=== PATIENT | female | born 1955 | race Caucasian/White ===

== ENCOUNTER 2017-07-17 11:05 | Inpatient (IN) | payer BC ==
[2017-07-14 14:48] VITALS: BP 113/64; PULSE 72; RESP 17
[2017-07-17] VITALS (15 sets, daily range): BP systolic 108–126; BP diastolic 51–76; PULSE 60–78; RESP 16–20; Ht 154.9 cm; Wt 88.7 kg
[~2017-07-17] VITALS: Ht 154.9 cm; Wt 88.7 kg
[2017-07-17] MEDS ORDERED: morphine SULFATE/PF (10 MG/10 ML) INJ ONE (11:53)
[2017-07-17] MEDS ORDERED: ROCURONIUM 50 MG INJ ONE (11:54)
[2017-07-17] MEDS ORDERED: LIDOCAINE 2% (SDV) 5 ML INJ ONE (11:54)
[2017-07-17] MEDS ORDERED: PROPOFOL 20 ML ONE (11:54)
[2017-07-17] MEDS ORDERED: FENTAnyl 50 MCG/ML VIAL ONE (11:56)
[2017-07-17] MEDS ORDERED: MEPERIDINE 25 MG INJ IV PRN (12:30)
[2017-07-17] MEDS ORDERED: KETOROLAC 30 MG INJ IV PRN ×2 (12:30→15:00)
[2017-07-17] MEDS ORDERED: FENTAnyl 50 MCG/ML VIAL IV PRN ×3 (12:30)
[2017-07-17] MEDS ORDERED: LABETALOL HCL 20MG INJ IV PRN (12:30)
[2017-07-17] MEDS ORDERED: MIDAZOLAM 1 MG/ML 2 ML INJ IV PRN (12:30)
[2017-07-17] MEDS ORDERED: ONDANSETRON 4 MG INJ IV PRN ×4 (12:30→18:00)
[2017-07-17] MEDS ORDERED: OXYCODONE/ACETAMINOPHEN (5/325) TAB PO PRN ×2 (12:30)
[2017-07-17] MEDS ORDERED: METOCLOPRAMIDE 10 MG INJ IV PRN (12:30)
[2017-07-17] MEDS ORDERED: HYDROmorphONE (0.2 MG/ML) 10ML SYG IV PRN ×3 (12:30)
[2017-07-17] MEDS ORDERED: EPHEDrine SULFATE 50 MG/5 ML SYG IV PRN (12:30)
[2017-07-17] MEDS ORDERED: DIPHENHYDRAMINE 50 MG INJ IV PRN ×2 (12:30→15:00)
[2017-07-17] MEDS ORDERED: hydrALAzine 20 MG INJ IV PRN (12:30)
[2017-07-17] MEDS ORDERED: MIDAZOLAM 1 MG/ML 2 ML INJ ONE (12:53)
--- NOTE | 2017-07-17 12:53 | HPN ---
Date/Time of Note Date/Time of Note DATE: 07/17/17 TIME: 12:52 Interval H&P Admission Note Pt. seen H&P reviewed: No system changes REGINA RIBEIRO MD Jul 17, 2017 12:53
--- NOTE | 2017-07-17 12:57 | OPR ---
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
[2017-07-17] MEDS ORDERED: TRANEXAMIC ACID 1,000 MG in SOD CHLORIDE 0.9% 100 ML IV ONE ×4 (13:00)
[2017-07-17] MEDS ORDERED: DEXAMETHASONE 4 MG/ML 1 ML INJ ONE (13:46)
[2017-07-17] MEDS ORDERED: ONDANSETRON 4 MG INJ ONE (13:47)
[2017-07-17] MEDS ORDERED: POLYMYXIN/BACITRACIN 1L IRRIG IRR ONE (14:29)
[2017-07-17] MEDS ORDERED: LABETALOL HCL 20MG INJ ONE (14:36)
[2017-07-17] MEDS ORDERED: GLYCOPYRROLATE 0.4 MG INJ ONE (14:43)
[2017-07-17] MEDS ORDERED: NEOSTIGMINE 3 MG/3 ML SYRINGE ONE (14:43)
[2017-07-17] MEDS ORDERED: NALOXONE (0.4 MG/ML) INJ IV PRN (15:00)
[2017-07-17] MEDS ORDERED: ZOLPIDEM 5 MG TAB PO PRN ×2 (15:00→18:00)
[2017-07-17] MEDS ORDERED: HYDROmorphONE 0.5 MG/0.5 ML SYG IV PRN ×2 (15:00)
[2017-07-17] MEDS ORDERED: ASPIRIN (EC) 325 MG TAB PO ONE (15:30)
[2017-07-17] MEDS: CEFAZOLIN 1 GM/50 ML (PMX) 50 ML IVPB SCH ×2 (15:39→21:57)
[2017-07-17] MEDS ORDERED: BISACODYL (EC) 5 MG TAB PO PRN (18:00)
[2017-07-17] MEDS ORDERED: MAGNESIUM HYDROXIDE 30ML CUP PO PRN (18:00)
[2017-07-17] MEDS ORDERED: DOCUSATE SODIUM 100 MG CAP PO PRN (18:00)
[2017-07-17] MEDS ORDERED: ACETAMINOPHEN 650 MG SUPP PR PRN (18:00)
--- NOTE | 2017-07-17 18:02 | QN ---
Documentation Comment [id number] AGUSTÍN ERICKSON MD Jul 17, 2017 18:02
[2017-07-17] MEDS: ACETAMINOPHEN 325 MG TAB PO PRN (18:03)
[2017-07-18] VITALS (8 sets, daily range): BP systolic 88–121; BP diastolic 45–72; PULSE 73–96; RESP 17–20
[2017-07-18] MEDS: CEFAZOLIN 1 GM/50 ML (PMX) 50 ML IVPB SCH ×3 (05:12→21:37)
[2017-07-18 05:22] LABS: ABNORMAL IP MESSAGE 1; BASOPHILS % 0.1 % (0.0-2.0); HEMATOCRIT 28.5 % (37.0-47.0); HEMOGLOBIN 9.6 g/dl (12.0-16.0); LYMPHOCYTES # 0.4 10^3/ul (0.8-2.9); LYMPHOCYTES % 5.1 % (15.0-51.0); MEAN CORPUSCULAR HEMOGLOBIN 30.6 pg (29.0-33.0); MEAN CORPUSCULAR HGB CONC 33.7 g/dl (32.0-37.0); MEAN CORPUSCULAR VOLUME 90.8 fl (82.0-101.0); MONOCYTE # 0.4 10^3/ul (0.3-0.9); MONOCYTES % 4.8 % (0.0-11.0); NEUTROPHIL # 7.7 10^3/ul (1.6-7.5); NEUTROPHILS % 89.5 % (39.0-77.0); PLATELET COUNT 149 10^3/UL (140-415); RED BLOOD COUNT 3.14 10^6/ul (4.20-5.40); RED CELL DISTRIBUTION WIDTH 12.6 % (11.5-14.5); WHITE BLOOD COUNT 8.6 10^3/ul (4.8-10.8)
[2017-07-18 05:45] LABS: POSITIVE DIFF @See below
[2017-07-18] MEDS ORDERED: PANTOPRAZOLE 40 MG INJ IV SCH (06:00)
[2017-07-18 06:04] LABS: ALBUMIN 3.2 g/dl (3.3-4.9); ALBUMIN/GLOBULIN RATIO 1.23; BILIRUBIN,INDIRECT 0.4 mg/dl (0-1.1); BILIRUBIN,TOTAL 0.4 mg/dl (0.2-1.3); CREATININE 0.69 mg/dl (0.44-1.00); POTASSIUM 4.5 mmol/L (3.5-5.1); TOTAL PROTEIN 5.8 g/dl (6.1-8.1)
--- NOTE | 2017-07-18 06:07 | HP ---
DATE OF ADMISSION: 07/17/2017 Thank you, Dr. Garrett, for kindly asking me to see this patient in consultation. The patient underwent right knee total replacement, has history of arthritis, has no diabetes, hypertension. She is being seen post-procedure. The family is at the bedside. PAST MEDICAL HISTORY: . No diabetes, hypertension. ALLERGIES: NEGATIVE. FAMILY HISTORY: Negative. SOCIAL HISTORY: Negative. MEDICATIONS AT HOME: None. REVIEW OF SYSTEMS: HEENT: Unremarkable. RESPIRATORY: Unremarkable. CARDIOVASCULAR: Unremarkable. ABDOMEN: Unremarkable. EXTREMITIES: As mentioned, pain. CENTRAL NERVOUS SYSTEM: Unremarkable. PHYSICAL EXAMINATION: GENERAL: The patient is awake, alert, obese female. VITAL SIGNS: Stable. HEAD: Atraumatic, normocephalic. Pupils equal, reactive to light. NECK: Supple. No JVD. LUNGS: Clear. CARDIOVASCULAR: S1, S2 normal. ABDOMEN: Soft, nontender. Bowel sounds positive. No palpable mass or hepatosplenomegaly. No guarding, rebound tenderness. EXTREMITIES: No cyanosis, clubbing, edema. The patient has a right knee dressing noted and drainage catheter noted. The patient is moving both lower extremities toes. CENTRAL NERVOUS SYSTEM: The patient is awake, alert, no focal deficit. LABORATORY DATA: None. IMPRESSION: Right total knee replacement. PLAN: To continue pain medication, stool softener, DVT prophylaxis per Dr. Garrett postop. Continue stool softener, antinausea medication, PPI. Orders were done. Dictated By: AGUSTÍN ERICKSON MD BS/NTS Conf#: [id number] DID#: [id number] CC: REGINA GARRETT MD;*EndCC* MTDD
--- NOTE | 2017-07-18 07:08 | OPR ---
DATE OF OPERATION: SURGEON: Samantha Garrett MD. ANESTHESIA: General. PREOPERATIVE DIAGNOSIS: Right knee osteoarthritis. POSTOPERATIVE DIAGNOSIS: Right knee osteoarthritis. PROCEDURE PERFORMED: Right total knee replacement arthroplasty using Sexton and Nephew components, s ize 4 Oxinium posterior stabilized femur, size 3 tibia, 9 mm liner, 23 mm patellar button. Componen ts cemented the Pal[place]os antibiotic cement. TOURNIQUET TIME: 55 minutes. ESTIMATED BLOOD LOSS: 200 mL. COMPLICATIONS: None. PROCEDURE: The patient taken to the operating room and general anesthetic given with intubation. A spinal block also given for postop pain control. Tourniquet applied on the right thigh. Wilkins cat heter inserted sterilely. Right leg prepped and draped in usual sterile manner, exsanguinated with Esmarch bandage, tourniquet inflated to 300 mmHg. Anterior incision made, medial arthrotomy. Sever e arthritis noted in the medial compartment and the patellofemoral joint. Patella prepared for a 23 mm button. Femur cut with the intramedullary guide to size 4 posterior stabilized. Tibia cut to a size 3. A trial reduction was carried out. A 9-mm liner provided full extension, stable medial and late ral stressing in extension and flexion. components were brought in. The bone was irrigated w ith pulsatile lavage. Hemostasis ascertained. Cement inserted and components placed satisfactorily with good patellar tracking. Excess cement removed meticulously. Tourniquet deflated. Hemostasis ascertained using cautery. Autotransfusion drain placed into the knee joint. Arthrotomy closed wi th #2 FiberWire sutures, subcutaneous layer closed with #1 Vicryl suture and jess on the skin. C ompression bandage applied. Anesthetic reversed. The patient taken to recovery in stable condition . Dictated By: SAMANTHA ARAUJO/MADELEINE Conf#: [id number] DID#: [id number]
[2017-07-18] MEDS: HYDROCODONE/APAP (5/325) TAB PO PRN ×3 (09:07→16:32)
--- NOTE | 2017-07-18 12:44 | OPPN ---
Date/Time of Note Date/Time of Note DATE: 07/18/17 TIME: 12:43 Anesthesia Follow up Anesthesia Follow up Last documented vital signs Vital Signs Date Time Temp Pulse Resp B/P Pulse Ox O2 Delivery O2 Flow Rate FiO2 07/18/17 07:24 97.3 98 20 100/54 94 07/18/17 04:10 Nasal Cannula 2.0 Respiratory function: WNL Cardiovascular function: WNL Comments post op day one status post total knee replacement. satisfactory pain management with intrathecal duramorph analgesia for post operative pain management. no complications noted \ CATALINA ELMORE Jul 18, 2017 12:44
--- NOTE | 2017-07-18 14:02 | PN ---
Date/Time of Note Date/Time of Note DATE: 07/18/17 TIME: 14:01 Assessment/Plan VTE Prophylaxis VTE Prophylaxis Intervention: SCD's Lines/Catheters IV Catheter Type (from Nrsg): Peripheral IV Urinary Cath still in place: Yes Reason Cath still needed: urinary retention Assessment/Plan Chief Complaint/Hosp Course 1. S/p Right total knee replacement. 2. obesity Problems: Subjective 24 Hr Interval Summary Musculoskeletal: bone/joint pain (right knee) Exam/Review of Systems Vital Signs Vitals Vital Signs Date Time Temp Pulse Resp B/P Pulse Ox O2 Delivery O2 Flow Rate FiO2 07/18/17 07:24 97.3 98 20 100/54 94 07/18/17 04:10 Nasal Cannula 2.0 Intake and Output 07/17/17 07/17/17 07/18/17 14:59 22:59 06:59 Intake Total 1300 ml 220 ml 400 ml Output Total 200 ml 450 ml 1100 ml Balance 1100 ml -230 ml -700 ml Exam Constitutional: alert, oriented Cardiovascular: regular rate and rhythm Musculoskeletal: range of motion (right knee), swelling Results Result Diagram: 07/18/17 0437 07/18/17 0437 Results 24 hrs Laboratory Tests Test 07/18/17 04:37 White Blood Count 8.6 Red Blood Count 3.14 L Hemoglobin 9.6 L Hematocrit 28.5 L Mean Corpuscular Volume 90.8 Mean Corpuscular Hemoglobin 30.6 Mean Corpuscular Hemoglobin Concent 33.7 Red Cell Distribution Width 12.6 Platelet Count 149 Mean Platelet Volume 11.0 H Neutrophils % 89.5 H Lymphocytes % 5.1 L Monocytes % 4.8 Eosinophils % 0.0 Basophils % 0.1 Nucleated Red Blood Cells % 0.0 Neutrophils # 7.7 H Lymphocytes # 0.4 L Monocytes # 0.4 Eosinophils # 0.0 Basophils # 0.0 Nucleated Red Blood Cells # 0.0 Sodium Level 138 Potassium Level 4.5 Chloride Level 103 Carbon Dioxide Level 27 Anion Gap 13 Blood Urea Nitrogen 14 Creatinine 0.69 Glucose Level 125 Calcium Level 9.0 Total Bilirubin 0.4 Direct Bilirubin 0.00 Indirect Bilirubin 0.4 Aspartate Amino Transf (AST/SGOT) 21 Alanine Aminotransferase (ALT/SGPT) 32 Alkaline Phosphatase 56 Total Protein 5.8 L Albumin 3.2 L Globulin 2.60 Albumin/Globulin Ratio 1.23 Medications Medications Current Medications Hydromorphone HCl (Dilaudid) 0.5 mg Q4H PRN IV PAIN; Start 07/17/17 at 15:30 Acetaminophen/ Hydrocodone Bitart ([place] [address] (5/325)) 1 tab Q6H PRN PO PAIN LEVEL 4 -7; Start 07/17/17 at 15:30 Ondansetron HCl 4 mg 4 mg Q6H PRN IV NAUSEA AND/OR VOMITING Last administered on 07/17/17 18:00; Admin Dose 4 MG; Start 07/17/17 at 15:30 Cefazolin Sodium (Ancef 1 Gm/50 ml (Pmx)) 50 ml @ 100 mls/hr Q8 IVPB Last administered on 07/18/17 05:12; Admin Dose 100 MLS/HR; Start 07/17/17 at 15:30 Acetaminophen (Tylenol Tab) 650 mg Q6H PRN PO PAIN AND OR ELEVATED TEMP Last administered on 07/17/17 18:03; Admin Dose 650 MG; Start 07/17/17 at 18:00 Ondansetron HCl (Zofran Inj) 4 mg Q6H PRN IV NAUSEA AND/OR VOMITING; Start 07/17/17 at 18:00 Acetaminophen (Tylenol Tab) 650 mg Q6H PRN PO PAIN LEVEL 1-3 OR FEVER; Start 07/17/17 at 18:00 Acetaminophen (Tylenol Supp) 650 mg Q6H PRN [place] PAIN LEVEL 1-3 OR FEVER; Start 07/17/17 at 18:00 Docusate Sodium (Colace) 100 mg Q12H PRN PO CONSTIPATION; Start 07/17/17 at 18: 00 Magnesium Hydroxide (Milk Of Mag) 30 ml DAILY PRN PO CONSTIPATION; Start at 18:00 Bisacodyl (Dulcolax) 5 mg DAILY PRN PO CONSTIPATION; Start 07/17/17 at 18:00 Zolpidem Tartrate (Ambien) 5 mg QHS PRN PO SLEEP; Start 07/17/17 at 18:00 Pantoprazole (Protonix Iv) 40 mg DAILY@06 IV Last administered on 07/18/17 05: 12; Admin Dose 40 MG; Start 07/18/17 at 06:00 BETTE GAMBLE Jul 18, 2017 14:02
[2017-07-18] MEDS: ACETAMINOPHEN 325 MG TAB PO PRN ×2 (15:44→21:36)
[2017-07-18] MEDS: HYDROmorphONE 0.5 MG/0.5 ML SYG IV PRN (19:29)
[2017-07-18] MEDS: NACL 0.9% 3 ML SYG IV SCH (19:35)
[2017-07-19] MEDS: NACL 0.9% 3 ML SYG IV SCH ×2 (00:19→00:24)
[2017-07-19] MEDS: HYDROmorphONE 0.5 MG/0.5 ML SYG IV PRN ×3 (00:21→14:07)
[2017-07-19 02:00] VITALS: BP 102/53; RESP 18
[2017-07-19] MEDS: HYDROCODONE/APAP (5/325) TAB PO PRN ×4 (02:27→22:36)
[2017-07-19 05:40] LABS: BASOPHILS % 0.3 % (0.0-2.0); EOSINOPHILS # 0.1 10^3/ul (0.0-0.5); EOSINOPHILS % 1.2 % (0.0-7.0); HEMATOCRIT 27.5 % (37.0-47.0); HEMOGLOBIN 9.1 g/dl (12.0-16.0); LYMPHOCYTES # 1.4 10^3/ul (0.8-2.9); LYMPHOCYTES % 17.7 % (15.0-51.0); MEAN CORPUSCULAR HEMOGLOBIN 30.4 pg (29.0-33.0); MEAN CORPUSCULAR HGB CONC 33.1 g/dl (32.0-37.0); MONOCYTE # 0.6 10^3/ul (0.3-0.9); MONOCYTES % 7.8 % (0.0-11.0); NEUTROPHIL # 5.6 10^3/ul (1.6-7.5); NEUTROPHILS % 72.6 % (39.0-77.0); PLATELET COUNT 148 10^3/UL (140-415); RED BLOOD COUNT 2.99 10^6/ul (4.20-5.40); WHITE BLOOD COUNT 7.7 10^3/ul (4.8-10.8)
[2017-07-19 06:08] LABS: CALCIUM 8.4 mg/dl (8.4-10.2); CREATININE 0.78 mg/dl (0.44-1.00); POTASSIUM 3.9 mmol/L (3.5-5.1)
[2017-07-19] MEDS: CEFAZOLIN 1 GM/50 ML (PMX) 50 ML IVPB SCH ×3 (06:55→21:32)
[2017-07-19] MEDS: PANTOPRAZOLE (EC) 40 MG TAB PO SCH (07:03)
[2017-07-19 07:40] VITALS: BP 107/59; RESP 18
[2017-07-19] MEDS: ENOXAPARIN 40 MG/0.4 ML SYG SC SCH (09:20)
--- NOTE | 2017-07-19 14:38 | PN ---
Date/Time of Note Date/Time of Note DATE: 07/19/17 TIME: 14:36 Assessment/Plan VTE Prophylaxis VTE Prophylaxis Intervention: LMWH Lines/Catheters IV Catheter Type (from Nrs): Saline Lock Urinary Cath still in place: Yes Reason Cath still needed: urinary retention Assessment/Plan Chief Complaint/Hosp Course 1. S/p Right total knee replacement. 2. obesity Problems: Assessment/Plan 1. Continue CPM 2. continue current treatment Subjective 24 Hr Interval Summary Constitutional: improved, no complaints Musculoskeletal: bone/joint pain Exam/Review of Systems Vital Signs Vitals Vital Signs Date Time Temp Pulse Resp B/P Pulse Ox O2 Delivery O2 Flow Rate FiO2 07/19/17 07:40 98.9 89 18 107/59 07/19/17 02:00 93 07/18/17 20:30 Room Air 07/18/17 16:00 2.0 Intake and Output 07/18/17 07/18/17 07/19/17 15:00 23:00 07:00 Intake Total 300 ml 1200 ml 300 ml Output Total 500 ml 780 ml 1090 ml Balance -200 ml 420 ml -790 ml Exam Constitutional: alert, oriented Cardiovascular: regular rate and rhythm Gastrointestinal: soft Musculoskeletal: muscle weakness, swelling (right knee) Results Result Diagram: 07/19/17 0448 07/19/17 0448 Results 24 hrs Laboratory Tests Test 07/19/17 04:48 White Blood Count 7.7 Red Blood Count 2.99 L Hemoglobin 9.1 L Hematocrit 27.5 L Mean Corpuscular Volume 92.0 Mean Corpuscular Hemoglobin 30.4 Mean Corpuscular Hemoglobin Concent 33.1 Red Cell Distribution Width 13.0 Platelet Count 148 Mean Platelet Volume 11.0 H Neutrophils % 72.6 Lymphocytes % 17.7 Monocytes % 7.8 Eosinophils % 1.2 Basophils % 0.3 Nucleated Red Blood Cells % 0.0 Neutrophils # 5.6 Lymphocytes # 1.4 Monocytes # 0.6 Eosinophils # 0.1 Basophils # 0.0 Nucleated Red Blood Cells # 0.0 Sodium Level 138 Potassium Level 3.9 Chloride Level 101 Carbon Dioxide Level 29 Anion Gap 12 Blood Urea Nitrogen 13 Creatinine 0.78 Glucose Level 122 Hemoglobin A1c 5.3 Calcium Level 8.4 Medications Medications Current Medications Hydromorphone HCl (Dilaudid) 0.5 mg Q4H PRN IV PAIN Last administered on 14:07; Admin Dose 0.5 MG; Start 07/17/17 at 15:30 Acetaminophen/ Hydrocodone Bitart 1 tab 1 tab Q6H PRN PO PAIN LEVEL 4-7 Last administered on 07/19/17 09:23; Admin Dose 1 TAB; Start 07/17/17 at 15:30 Cefazolin Sodium (Ancef 1 Gm/50 ml (Pmx)) 50 ml @ 100 mls/hr Q8 IVPB Last administered on 07/19/17 14:07; Admin Dose 100 MLS/HR; Start 07/17/17 at 15:30 Ondansetron HCl (Zofran Inj) 4 mg Q6H PRN IV NAUSEA AND/OR VOMITING; Start 07/17/17 at 18:00 Acetaminophen (Tylenol Tab) 650 mg Q6H PRN PO PAIN LEVEL 1-3 OR FEVER Last administered on 07/18/17 21:36; Admin Dose 650 MG; Start 07/17/17 at 18:00 Acetaminophen (Tylenol Supp) 650 mg Q6H PRN [place] PAIN LEVEL 1-3 OR FEVER; Start 07/17/17 at 18:00 Docusate Sodium (Colace) 100 mg Q12H PRN PO CONSTIPATION; Start 07/17/17 at 18: 00 Magnesium Hydroxide (Milk Of Mag) 30 ml DAILY PRN PO CONSTIPATION; Start at 18:00 Bisacodyl (Dulcolax) 5 mg DAILY PRN PO CONSTIPATION; Start 07/17/17 at 18:00 Zolpidem Tartrate (Ambien) 5 mg QHS PRN PO SLEEP; Start 07/17/17 at 18:00 Enoxaparin Sodium (Lovenox) 40 mg DAILY SC Last administered on 07/19/17 09:20 ; Admin Dose 40 MG; Start 07/19/17 at 09:00 Pantoprazole (Protonix Tab) 40 mg DAILY@06 PO Last administered on 07/19/17 07 :03; Admin Dose 40 MG; Start 07/19/17 at 06:00 BETTE GAMBLE Jul 19, 2017 14:38
[2017-07-19 16:10] VITALS: BP 131/71; RESP 17
[2017-07-19] MEDS: ACETAMINOPHEN 325 MG TAB PO PRN (17:36)
[2017-07-19 20:24] VITALS: BP 110/59; RESP 18
[2017-07-20 01:42] VITALS: BP 113/55; RESP 18
[2017-07-20] MEDS: PANTOPRAZOLE (EC) 40 MG TAB PO SCH (05:58)
[2017-07-20] MEDS: HYDROCODONE/APAP (5/325) TAB PO PRN ×3 (05:58→21:56)
[2017-07-20] MEDS: CEFAZOLIN 1 GM/50 ML (PMX) 50 ML IVPB SCH ×2 (05:59→13:19)
[2017-07-20 07:53] VITALS: BP 114/58; RESP 18
[2017-07-20] MEDS: HYDROmorphONE 0.5 MG/0.5 ML SYG IV PRN ×2 (08:00→13:19)
[2017-07-20] MEDS: ENOXAPARIN 40 MG/0.4 ML SYG SC SCH (08:01)
[2017-07-20 15:16] VITALS: BP 120/60; RESP 18
--- NOTE | 2017-07-20 17:22 | PN ---
Date/Time of Note Date/Time of Note DATE: 07/20/17 TIME: 17:21 Assessment/Plan VTE Prophylaxis VTE Prophylaxis Intervention: other Lines/Catheters IV Catheter Type (from Nrs): Saline Lock Urinary Cath still in place: No Assessment/Plan Chief Complaint/Hosp Course S/P RT KNEE REPLACEMENT POST OP ANEMIA PLAN PER ORTHO [facility] LABS Problems: Subjective 24 Hr Interval Summary Cardiovascular: no complaints Gastrointestinal: no complaints Musculoskeletal: no complaints Exam/Review of Systems Vital Signs Vitals Vital Signs Date Time Temp Pulse Resp B/P Pulse Ox O2 Delivery O2 Flow Rate FiO2 07/20/17 15:16 97.8 86 18 120/60 90 07/18/17 20:30 Room Air 07/18/17 16:00 2.0 Intake and Output 07/19/17 07/19/17 07/20/17 14:59 22:59 06:59 Intake Total 100 ml 970 ml 510 ml Output Total 900 ml 600 ml Balance 100 ml 70 ml -90 ml Exam Neck: supple Respiratory: clear to auscultation Cardiovascular: regular rate and rhythm Gastrointestinal: soft Musculoskeletal: nl extremities to inspection Extremities: edema (+), normal pulses Neurological: 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, No focal weakness Results Result Diagram: 07/19/1744707/19/17447 Medications Medications Current Medications Hydromorphone HCl (Dilaudid) 0.5 mg Q4H PRN IV PAIN Last administered on 13:19; Admin Dose 0.5 MG; Start 07/17/17 at 15:30 Acetaminophen/ Hydrocodone Bitart ([place] (5/325)) 1 tab Q6H PRN PO PAIN LEVEL 4 -7 Last administered on 07/20/17 14:26; Admin Dose 1 TAB; Start 07/17/17 at 15: 30 Ondansetron HCl (Zofran Inj) 4 mg Q6H PRN IV NAUSEA AND/OR VOMITING; Start 07/17/17 at 18:00 Acetaminophen (Tylenol Tab) 650 mg Q6H PRN PO PAIN LEVEL 1-3 OR FEVER Last administered on 07/19/17 17:36; Admin Dose 650 MG; Start 07/17/17 at 18:00 Acetaminophen (Tylenol Supp) 650 mg Q6H PRN [place] PAIN LEVEL 1-3 OR FEVER; Start 07/17/17 at 18:00 Docusate Sodium (Colace) 100 mg Q12H PRN PO CONSTIPATION; Start 07/17/17 at 18: 00 Magnesium Hydroxide (Milk Of Mag) 30 ml DAILY PRN PO CONSTIPATION; Start at 18:00 Bisacodyl (Dulcolax) 5 mg DAILY PRN PO CONSTIPATION; Start 07/17/17 at 18:00 Zolpidem Tartrate (Ambien) 5 mg QHS PRN PO SLEEP; Start 07/17/17 at 18:00 Enoxaparin Sodium (Lovenox) 40 mg DAILY SC Last administered on 07/20/17 08:01 ; Admin Dose 40 MG; Start 07/19/17 at 09:00 Pantoprazole (Protonix Tab) 40 mg DAILY@06 PO Last administered on 07/20/17 05 :58; Admin Dose 40 MG; Start 07/19/17 at 06:00 AGUSTÍN ERICKSON MD Jul 20, 2017 17:22
[2017-07-20] MEDS: ACETAMINOPHEN 325 MG TAB PO PRN (18:02)
[2017-07-20 20:20] VITALS: BP 116/59; RESP 20
[2017-07-21 02:38] VITALS: BP 117/67; RESP 20
[2017-07-21 05:14] LABS: BASOPHILS % 0.4 % (0.0-2.0); EOSINOPHILS # 0.2 10^3/ul (0.0-0.5); EOSINOPHILS % 3.2 % (0.0-7.0); HEMATOCRIT 30.1 % (37.0-47.0); LYMPHOCYTES # 1.4 10^3/ul (0.8-2.9); LYMPHOCYTES % 26.7 % (15.0-51.0); MEAN CORPUSCULAR HEMOGLOBIN 30.2 pg (29.0-33.0); MEAN CORPUSCULAR HGB CONC 33.2 g/dl (32.0-37.0); MEAN CORPUSCULAR VOLUME 90.9 fl (82.0-101.0); MEAN PLATELET VOLUME 10.7 fl (7.4-10.4); MONOCYTE # 0.4 10^3/ul (0.3-0.9); MONOCYTES % 6.9 % (0.0-11.0); NEUTROPHIL # 3.1 10^3/ul (1.6-7.5); PLATELET COUNT 171 10^3/UL (140-415); RED BLOOD COUNT 3.31 10^6/ul (4.20-5.40); RED CELL DISTRIBUTION WIDTH 12.4 % (11.5-14.5); WHITE BLOOD COUNT 5.1 10^3/ul (4.8-10.8)
[2017-07-21] MEDS: HYDROCODONE/APAP (5/325) TAB PO PRN ×2 (08:05→15:27)
[2017-07-21] MEDS: PANTOPRAZOLE (EC) 40 MG TAB PO SCH (08:05)
[2017-07-21] MEDS: ENOXAPARIN 40 MG/0.4 ML SYG SC SCH (08:11)
--- NOTE | 2017-07-21 08:11 | PN ---
DATE: 07/20/2017 PROCEDURE: Patient is postop right total knee replacement. Drain was removed on 07/19/2017. Wound appears dry. Patient is progressing well with physical therapy. Ambulating independently. Patient can be discharged home in the morning with the CPM machine, continued physical therapy and followup office appointment in 1 week. On examination, compartments are soft and neurovascular status is __ ___. Wound is dry and without redness. The patient reports steady improvement in the pain in the k nee and that pain is tolerable at this point in time. Dictated By: REGINA ARAUJO/MADELEINE Conf#: [id number] DID#: [id number]
[2017-07-21 08:28] VITALS: BP 118/62; RESP 20
[2017-07-21 15:40] VITALS: BP 122/69; RESP 20
--- NOTE | 2017-07-21 16:29 | PDOCDIS ---
Discharge Instructions CONDITION Patient Condition: Stable HOME CARE INSTRUCTIONS: Diet Instructions: RegularSpecial Diet: regular ACTIVITY: Activity Restrictions: Slowly Increase Activity Rest between Activity Do not Drive Do not operate Machinery Do not operate Power Tool Avoid Heavy Housework Activity Restrictions Comment: NO SHOWER UNTIL DOCTOR SAYS ITS OK FOLLOW UP/APPOINTMENTS Follow-up Plan f/u own pcp [address] jain 1 wk AGUSTÍN ERICKSON MD Jul 21, 2017 16:29
[2017-07-21] MEDS ORDERED: ACET325T33 PO (16:34)
[2017-07-21] MEDS ORDERED: BISA5TAB6 PO (16:34)
[2017-07-21] MEDS ORDERED: HYDR-3498 PO (16:34)
[2017-07-21] MEDS ORDERED: APIX2.5T PO (16:34)
[2017-07-21] MEDS ORDERED: DOCU-216 PO (16:34)
--- NOTE | 2017-07-23 18:25 | QN ---
Documentation Comment [id number] AGUSTÍN ERICKSON MD Jul 23, 2017 18:25
--- NOTE | 2017-07-24 06:54 | DS ---
DATE OF ADMISSION: 07/17/2017 DATE OF DISCHARGE: 07/21/2017 The patient was admitted with right knee arthritis, underwent right total knee replacement arthropla sty using Sexton and Nephew component. Postop, patient had mild anemia which was addressed and follo wed. The patient received pain medication and received physical therapy, CPM machine. The patient was cleared by Dr. Garrett to be discharged home. DISCHARGE DIAGNOSES: Include: 1. Right total knee arthroplasty. 2. The patient has anemia. 3. Obesity. DISCHARGE MEDICATIONS: To continue on: 1. Tylenol. 2. Apixaban for DVT prophylaxis. 3. Bisacodyl. 4. Docusate sodium. 5. Hydrocodone. Follow with Dr. Garrett and patient's own PCP as an outpatient. Dictated By: AGUSTÍN ERICKSON MD BS/NTS Conf#: [id number] DID#: [id number] CC: REGINA GARRETT MD;*EndCC*
== END 2017-07-21 17:20 | disposition home or self-care (01) | DRG 470 ==
LOC: REC 11:05 → MS1 16:40
PROVIDERS: ADMIT Specialist; ATTEND Specialist
PROC: 0SRC0J9 Replacement of Right Knee Joint with Synthetic Substitute, Cemented, Open Approach (ICD-10-PCS; principal; 2017-07-17 12:00)
DX: M17.11 Unilateral primary osteoarthritis, right knee (principal); E66.9 Obesity, unspecified; D64.9 Anemia, unspecified; Z68.36 Body mass index [BMI] 36.0-36.9, adult
CPT/HCPCS: 80048; 80053; 83036; 85025; 88304; 88311; 97110; 97116; 97162; 97530; C1713; C9113; J0690; J1100; J1170; J1200; J1650; J1885; J2250; J2274; J2405; J2710; J3010